=== PATIENT | female | born 1930 | race Caucasian/White ===

== ENCOUNTER 2018-10-09 15:49 | Observation (INO) ==
[2018-10-09] MEDS ORDERED: Acetaminophen 325 MG TABLET PO PRN (17:07)
[2018-10-09] MEDS ORDERED: Mag Hydrox/Al Hydrox/Simeth 30 ML UDC PO PRN (17:09)
[2018-10-09] MEDS ORDERED: Ondansetron ODT 4 MG TAB.RAPDIS SL PRN (17:11)
[2018-10-09] MEDS: traMADol 50 MG TABLET PO PRN (18:43)
[2018-10-09] MEDS: Albuterol 2.5 MG/3 ML NEBULIZER IH SCH (20:32)
[2018-10-09] MEDS: Ipratropium Neb 0.5 MG NEBULIZER IH SCH (20:37)
[2018-10-10] MEDS: Ipratropium Neb 0.5 MG NEBULIZER IH SCH (05:32)
[2018-10-10 05:52] LABS: Basophils % 0.3 %; Eosinophils # 0.2 K/mcL (0.0-0.6); Hematocrit 33.5 % (35.3-44.9); Hemoglobin 10.5 g/dL (11.5-15.4); Immature Granulocytes % 0.3 % (0-4); Lymphocytes # 1.3 K/mcL (0.6-4.6); Lymphocytes % 22.6 %; Mean Corpuscular HGB Conc 31.3 g/dL (31.6-35.5); Mean Corpuscular Hemoglobin 30.1 pg (28.0-33.3); Mean Platelet Volume 10.7 fL (9.4-12.4); Monocytes # 0.6 K/mcL (0.0-1.3); Monocytes % 10.3 %; Neutrophils # 3.8 K/mcL (1.6-8.9); Platelet Count 128 K/mcL (140-400); Red Blood Count 3.49 M/mcL (3.82-4.97); Red Cell Distribution Width 13.6 % (11.5-14.5); Segmented Neutrophils % 63.5 %; White Blood Count 5.9 K/mcL (4.3-11.1)
[2018-10-10 06:08] LABS: BUN/Creatinine Ratio 38 (6-26); Blood Urea Nitrogen 36 mg/dL (8-23); Calcium 9.1 mg/dL (8.6-10.3); Carbon Dioxide 31 mEq/L (23-29); Chloride 102 mEq/L (98-107); Glucose 110 mg/dL (70-105); Magnesium 2.2 mg/dL (1.6-2.6); Osmolality,Calculated 291 (280-300); Potassium 4.6 mEq/L (3.5-5.1); Sodium 136 mEq/L (136-145); eGFR For African Americans > 60 (> 60); eGFR For Non-African Americans 56 (> 60)
[2018-10-10 06:20] LABS: Thyroid Stimulating Hormone 0.638 mcIU/mL (0.340-5.600)
[2018-10-10 07:45] VITALS: BP 132/79
--- NOTE | 2018-10-10 08:29 | Internal Med History&Physical ---
Date of Encounter: 10/10/18 Time of Encounter: 08:29 Assessment and Plan (1) Fracture of humerus Current visit: No Status: Acute This will need to be treated supportively with pain medication, immobilization. This makes the patient unable to care for herself and will require 24-hour care. Qualifiers: Encounter type: subsequent encounter Humerus Location: surgical neck Fracture type: closed Fracture morphology: unspecified fracture morphology Fracture alignment: nondisplaced Laterality: right Fracture healing: with routine healing Qualified Code(s): S42.214D - Unspecified nondisplaced fracture of surgical neck of right humerus, subsequent encounter for fracture with routine healing (2) Asthma Current visit: No Status: Acute Apparently stable. Will use supportive care and nebulized treatments, follow hypoxia. Qualifiers: Asthma severity: moderate Asthma persistence: unspecified Asthma complication type: with acute exacerbation Qualified Code(s): J45.901 - Unspecified asthma with (acute) exacerbation (3) HTN (hypertension) Current visit: No Status: Acute Controlled thus far on current regimen. Qualifiers: Hypertension type: essential hypertension Qualified Code(s): I10 - Essential (primary) hypertension Internal Medicine - H&P: HPI Admitted From: Home Plans for Post Hospital Care: Transfer Group Home Facility History of present illness: Ms. Schultz is a 88 year old female who was in her usual state of health until approximately 3 days ago when she tripped and fell in her kitchen. She states that she had no loss of consciousness, dizziness, head injury, predisposition to falling. She said he states that she simply tripped and hit the stove. She was seen in the emergency room and then was told that she needed to follow-up with orthopedist. Apparently, she was seen in [place] by Dr. montalvo who felt that she could not undergo surgery because of her advanced age. He told her to keep her shoulder still until it healed. She has pain that is 7 out of 10 with movement. As long as she does not move, she has no pain. She denies breathing or other problems. Yesterday, she was seen by and sports medicine who felt that she was unstable at home, family could not care for her, and that she would require placement in the ECF. He had asked us to admit her to the hospital for evaluation of same. She had fallen before once or twice and simply landed on the carpet with no known injury. She is unstable because of arthritis in her ankles and general debility. Past medical history is significant for hypertension, rheumatoid arthritis especially involving hands and feet, and asthma. She treats the arthritis with topical cream, only, because the "pills are not going to help." She is a nonsmoker and nondrinker. She lives alone and is . She wears full dentures. She has a history of pneumonia and respiratory failure but apparently, not recently. There is a question of a lung mass on her diagnosis list but review of chest x-rays and CT scans failed to reveal this. She had "eye surgery" but is not sure as to what kind. She denies cataracts or glaucoma. Past Med Surg Social Fam HX - Past Medical History Medical history: arthritis, asthma, hypertension, RA Psychiatric history: no psych history - Past Surgical History Surgical History: cholecystectomy, orthopedic, other Additional surgical history: eye surgery, BILAT SHOULDER SURG, RT KNEE SURG - Social History Smoking Status: Never smoker Smokeless Tobacco Status: No Alcohol use: none Drug use: none Internal Medicine - H&P: Meds Amitriptyline [Elavil] 25 mg PO HS 12/17/14 [History] Lisinopril [Zestril] 20 mg PO DAILY 12/17/14 [History] Montelukast [Singulair] 10 mg PO DAILY 12/17/14 [History] Ipratropium Neb [Atrovent Neb] 0.5 mg IH QID 04/26/17 [History] Meloxicam 15 mg PO DAILY PRN 02/18/18 [History] Arformoterol Tartrate [Brovana] 15 mcg IH BID 10/07/18 [History] Pramipexole [Mirapex] 0.5 mg PO BID 10/07/18 [History] Tramadol HCl [Ultram] 50 mg PO BID PRN 5 Days #10 tab 10/07/18 [Rx] Vit C/E/Zn/Coppr/Lutein/Zeaxan [Preservision Areds 2 Softgel] 1 tab PO BID 10/07/18 [History] Allergy/AdvReac Type Severity Reaction Status Date / Time No Known Allergies Allergy Verified 02/18/18 20:20 All Systems PM: Patient has no complaint of chest discomfort, dyspnea, orthopnea, breathing problems, palpitations, nausea or vomiting, constipation or diarrhea, other changes in bowel habits, heartburn, difficulty with urination, kidney problems or kidney stones, fevers chills or sweats, rash or itching, seizures, headache or lightheadedness, heat or cold intolerance, blood problems or anemia, or other new complaints, except as mentioned above. Review of systems is otherwise negative. - Constitutional Vitals: Temp Pulse Resp BP Pulse Ox 97.9 F 68 16 132/79 98 10/10/18 07:44 10/10/18 07:44 10/10/18 07:44 10/10/18 07:44 10/10/18 07:44 Exam: Examination: (Except as mentioned above): General: In no apparent distress, alert and oriented 3. She is on oxygen by nasal cannula. Head: Atraumatic and normocephalic. Eyes: Extraocular muscles are intact, pupils equal round and reactive to light and accommodation. Sclerae anicteric. Ears: External ears are normal to inspection and hearing is grossly normal. Nose: Patent without lesion noted. Mouth: No intraoral lesions seen. Edentulous with full dentures in place. Neck: Supple with trachea midline. There is no thyromegaly or adenopathy and carotids are 2+ without bruit heard. Respiratory: No use of accessory muscles. Lungs are clear throughout, with the exception of rare sibilant rhonchi, right upper lung field. Normal airflow. Cardiovascular: Regular rate and rhythm without murmur appreciated. Abdomen: Bowel sounds are normal. No hepatosplenomegaly masses or tenderness. Obese and therefore difficult to palpate deeply. Extremities: No cyanosis clubbing or edema. She is in a sling and swath at the right. She has good movement of her fingers and circulation seems normal with normal capillary refill. There is no cord or calf tenderness. She has deformit y of fingers and hands with ulnar deviation as well as some change in feet consistent with her history of rheumatoid arthritis. Neurological: A and O 3. Cranial nerves II through XII are intact. No focal deficits and no abnormal movements or postures. Skin: Warm and non-diaphoretic with no lesions noted. Breasts, pelvic and rectal: Not examined. Internal Med - H&P Results - Labs CBC & Chem 7: 10/10/18 05:25 10/10/18 05:25 Labs: Short CBC 10/10/18 Range/Units 05:25 WBC 5.9 (4.3-11.1) K/mcL Hgb 10.5 L (11.5-15.4) g/dL Hct 33.5 L (35.3-44.9) % Plt Count 128 L (140-400) K/mcL Neutrophils # 3.8 (1.6-8.9) K/mcL BMP 10/10/18 05:25 Sodium 136 Potassium 4.6 Chloride 102 Carbon Dioxide 31 H BUN 36 H Creatinine 0.94 Glucose 110 H Calcium 9.1
[2018-10-10] MEDS ORDERED: Multivit/Ca/Min/Fe/FA 1 TAB TABLET PO SCH (09:00)
[2018-10-10] MEDS ORDERED: Lisinopril 20 MG TABLET PO SCH (09:00)
[2018-10-10] MEDS: traMADol 50 MG TABLET PO PRN (09:24)
[2018-10-10] MEDS: Albuterol 2.5 MG/3 ML NEBULIZER IH SCH (10:30)
[2018-10-10] MEDS: Ipratropium/Albuterol Neb 3 ML IH SCH ×2 (11:36→17:20)
--- NOTE | 2018-10-10 14:32 | Discharge Summary ---
Date of Encounter: 10/10/18 Time of Encounter: 14:30 - Discharge Diagnosis (1) Fracture of humerus Priority: Secondary Status: Acute Qualifiers: Encounter type: subsequent encounter Humerus Location: surgical neck Fracture type: closed Fracture morphology: unspecified fracture morphology Fracture alignment: nondisplaced Laterality: right Fracture healing: with routine healing Qualified Code(s): S42.214D - Unspecified nondisplaced fr acture of surgical neck of right humerus, subsequent encounter for fracture with routine healing (2) Asthma Priority: Secondary Status: Acute Qualifiers: Asthma severity: moderate Asthma persistence: unspecified Asthma complication type: with acute exacerbation Qualified Code(s): J45.901 - Unspecified asthma with (acute) exacerbation (3) HTN (hypertension) Priority: Secondary Status: Acute Qualifiers: Hypertension type: essential hypertension Qualified Code(s): I10 - Essential (primary) hypertension (4) Multiple falls Priority: Primary Status: Acute Hospital course: Ms. Schultz is a 88 year old female who fell last year and broke her ribs. She also has tripped and fallen on carpet at home. 3 days ago, she fell and broke her right proximal humerus. She was seen at the emergency room and sent home but could not function at home, according to family. She was seen in consultation by Dr. Walt Jacinto, sports medicine, who feels that she is unsafe to be at home. He asked that we admit her and evaluate. She is stable medically but unsteady because of her rheumatoid arthritis, chronic deformities, and inability to use her right upper extremity because of fractured humerus. For this reason, she was evaluated for ECF placement and this is planned. Please see my H&P this date. - Time Spent with Patient Total time spent providing and/or coordinating discharge services: - Discharge Medications Prescriptions: No Action Ipratropium Neb [Atrovent Neb] 0.5 mg IH QID Montelukast [Singulair] 10 mg PO DAILY Amitriptyline [Elavil] 25 mg PO HS Lisinopril [Zestril] 20 mg PO DAILY Meloxicam 15 mg PO DAILY PRN PRN Reason: Pain Pramipexole [Mirapex] 0.5 mg PO BID Vit C/E/Zn/Coppr/Lutein/Zeaxan [Preservision Areds 2 Softgel] 1 tab PO BID Arformoterol Tartrate [Brovana] 15 mcg IH BID Tramadol HCl [Ultram] 50 mg PO BID PRN 5 Days #10 tab PRN Reason: Severe Pain Home Medications: Amitriptyline [Elavil] 25 mg PO HS 12/17/14 [History] Lisinopril [Zestril] 20 mg PO DAILY 12/17/14 [History] Montelukast [Singulair] 10 mg PO DAILY 12/17/14 [History] Ipratropium Neb [Atrovent Neb] 0.5 mg IH QID 04/26/17 [History] Meloxicam 15 mg PO DAILY PRN 02/18/18 [History] Arformoterol Tartrate [Brovana] 15 mcg IH BID 10/07/18 [History] Pramipexole [Mirapex] 0.5 mg PO BID 10/07/18 [History] Tramadol HCl [Ultram] 50 mg PO BID PRN 5 Days #10 tab 10/07/18 [Rx] Vit C/E/Zn/Coppr/Lutein/Zeaxan [Preservision Areds 2 Softgel] 1 tab PO BID 10/07/18 [History] Allergies/Adverse Reactions: Allergy/AdvReac Type Severity Reaction Status Date / Time No Known Allergies Allergy Verified 02/18/18 20:20 Date of admission: 10/09/18 16:24 Primary care physician: PCP NONE Consults: 10/09/18 17:15 Consult to Occupational Therapy [CONS] Routine Comment: Evaluate, develop and implement POC Reason for Consult: eval and treat Does patient have active BEDREST order?: No Is patient medically & hemodynamically stable?: Yes Patient assessed for mobility or mobilized this visit?: Yes Consult to Physical Therapy [CONS] Routine Comment: Evaluate, develop and implement POC Reason for Consult: eval and treat Does patient have active BEDREST order?: No Is patient medically & hemodynamically stable?: Yes Patient assessed for mobility or mobilized this visit?: Yes Consult to [employer] [CONS] Routine Reason for SW Consult: Please evaluate for home situation and discharge planning Discharging clinician: Ronak Finney Anticipated date of discharge: 10/10/18 - Constitutional Vitals: Temp Pulse Resp BP Pulse Ox 97.9 F 68 18 132/79 96 10/10/18 07:44 10/10/18 07:44 10/10/18 12:39 10/10/18 07:44 10/10/18 12:39 Exam: Please see my H&P this date. - Patient Status Disposition: Transfer SNF Condition: Fair Overall status at discharge: patient is progressing back to baseline - Discharge Instructions Follow Up With: Walt Jacinto MD [Partnered Physician] - (follow up in 1 week) Ronak Finney MD [Non-Partnered Physician] -
--- NOTE | 2018-10-10 14:37 | Physician Discharge Referral ---
ExtendedCare Referral Info Provider in Charge after Transfer: Other ([facility] physician) Institutional Level of Care: Skilled - Diagnosis (1) Fracture of humerus Priority: Primary Status: Acute (2) Asthma Priority: Secondary Status: Acute (3) HTN (hypertension) Priority: Secondary Status: Acute (4) Multiple falls Priority: Secondary Status: Acute Prognosis: Fair Aware of Diagnosis: Patient, Family Aware of Prognosis: Patient, Family - Transfer Medications Home Medications: Amitriptyline [Elavil] 25 mg PO HS 12/17/14 [History] Lisinopril [Zestril] 20 mg PO DAILY 12/17/14 [History] Montelukast [Singulair] 10 mg PO DAILY 12/17/14 [History] Ipratropium Neb [Atrovent Neb] 0.5 mg IH QID 04/26/17 [History] Meloxicam 15 mg PO DAILY PRN 02/18/18 [History] Arformoterol Tartrate [Brovana] 15 mcg IH BID 10/07/18 [History] Pramipexole [Mirapex] 0.5 mg PO BID 10/07/18 [History] Tramadol HCl [Ultram] 50 mg PO BID PRN 5 Days #10 tab 10/07/18 [Rx] Vit C/E/Zn/Coppr/Lutein/Zeaxan [Preservision Areds 2 Softgel] 1 tab PO BID 10/07/18 [History] Allergies/Adverse Reactions: Allergy/AdvReac Type Severity Reaction Status Date / Time No Known Allergies Allergy Verified 02/18/18 20:20 - Respiratory Orders Oxygen / L per min Smoking Cessation: Smoking cessation has been advised. For more information, call the [place] Tobacco Quit Line at 3-221-ESCD-NOW. - Advance Directives Code Status: Full Code - History and Physical History/Physical reviewed & approved w/add comments: Completed today. - Mobility Orders Ambulate - Rehabiliation Orders Rehab Potential: Fair Rehab Orders: Evaluation for Physical Therapy, Evaluation for Occupational Therapy Other: Needs to avoid use of right upper extremity and to be in a sling at all times. - Treatments Skin tear care topically daily PRN per policy, May check for fecal impaction rectally daily PRN - Diet Orders Regular CERTIFICATION: I certify that the transfer of the above named patient to an Extended Care Facility is necessary for the continuing treatment of the diagnosis listed. The above information is true and accurate reflection of patient's current condition. Confidential - Redisclosure prohibited without a patient's written consent.
== END 2018-10-10 19:50 ==
LOC: INPGRE

== ENCOUNTER 2019-03-24 09:41 | Observation (INO) ==
[2019-03-24] MEDS ORDERED: Albuterol Neb 7.5 MG, Sodium Chloride for inhalation 12 ML IH ONE (09:45)
[2019-03-24] MEDS ORDERED: Ipratropium Neb 0.5 MG NEBULIZER ONE (09:46)
[2019-03-24] MEDS ORDERED: Albuterol 2.5 MG/3 ML NEBULIZER ONE (09:46)
[2019-03-24] MEDS ORDERED: Ipratropium Neb 0.5 MG NEBULIZER IH ONE ×2 (09:46→13:20)
[2019-03-24] MEDS ORDERED: Furosemide 40 MG/4 ML VIAL IVP ONE ×2 (10:12→13:20)
[2019-03-24 10:17] LABS: Basophils % 0.3 %; Eosinophils # 0.1 K/mcL (0.0-0.6); Hematocrit 38.4 % (35.3-44.9); Hemoglobin 12.7 g/dL (11.5-15.4); Immature Granulocytes % 0.2 % (0-4); Lymphocytes # 1.2 K/mcL (0.6-4.6); Lymphocytes % 18.5 %; Mean Corpuscular HGB Conc 33.1 g/dL (31.6-35.5); Mean Corpuscular Volume 93.7 fL (83.0-100.0); Mean Platelet Volume 10.6 fL (9.4-12.4); Monocytes # 0.6 K/mcL (0.0-1.3); Monocytes % 9.2 %; Neutrophils # 4.5 K/mcL (1.6-8.9); Platelet Count 152 K/mcL (140-400); Red Cell Distribution Width 13.4 % (11.5-14.5); Segmented Neutrophils % 69.8 %; White Blood Count 6.4 K/mcL (4.3-11.1)
[2019-03-24 10:32] LABS: BUN/Creatinine Ratio 22 (6-26); Blood Urea Nitrogen 14 mg/dL (8-23); Calcium 9.5 mg/dL (8.6-10.3); Carbon Dioxide 30 mEq/L (23-29); Chloride 100 mEq/L (98-107); Glucose 110 mg/dL (70-105); Osmolality,Calculated 289 (280-300); Potassium 3.7 mEq/L (3.5-5.1); Sodium 139 mEq/L (136-145); eGFR For African Americans > 60 (> 60); eGFR For Non-African Americans > 60 (> 60)
[2019-03-24] MEDS ORDERED: cefTRIAXone 1,000 MG in 0.9 % Sodium Chloride Mini Bag 100 ML IVPB ONE (10:58)
[2019-03-24] MEDS ORDERED: Azithromycin 500 MG in 0.9 % Sodium Chloride 250 ML IVPB ONE (10:59)
[2019-03-24] MEDS ORDERED: Ipratropium/Albuterol Neb 3 ML IH SCH ×2 (13:00)
[2019-03-24] MEDS ORDERED: 0.9 % Sodium Chloride 1,000 ML IVC SCH (13:20)
[2019-03-24] MEDS ORDERED: Ondansetron ODT 4 MG TAB.RAPDIS SL PRN ×2 (13:20→18:58)
[2019-03-24] MEDS ORDERED: Naloxone 0.4 MG/ML INJ IVP PRN (13:20)
[2019-03-24] MEDS ORDERED: Albuterol 2.5 MG/3 ML NEBULIZER IH ONE (13:20)
[2019-03-24] MEDS: Ipratropium/Albuterol Neb 3 ML IH SCH ×2 (15:26→20:46)
[2019-03-24] MEDS ORDERED: Mag Hydrox/Al Hydrox/Simeth 30 ML UDC PO PRN (18:57)
[2019-03-24] MEDS ORDERED: Melatonin 3 MG TABLET PO PRN (18:58)
[2019-03-24] MEDS ORDERED: DICLOFENAC SODIUM 4 GM TP PRN (19:01)
[2019-03-24] MEDS: Acetaminophen 325 MG TABLET PO PRN (20:46)
[2019-03-24] MEDS: Budesonide/Formoterol 80/4.5 1 PUFF INH IH SCH (20:50)
[2019-03-25] MEDS: Ipratropium/Albuterol Neb 3 ML IH SCH ×4 (01:09→11:20)
[2019-03-25] MEDS: Acetaminophen 325 MG TABLET PO PRN (04:23)
[2019-03-25] MEDS ORDERED: *HR* Enoxaparin 40 MG/0.4 ML SYRINGE SQ SCH (06:00)
[2019-03-25] MEDS ORDERED: Albuterol Neb 7.5 MG, Sodium Chloride for inhalation 12 ML IH ONE (06:47)
[2019-03-25] MEDS: Budesonide/Formoterol 80/4.5 1 PUFF INH IH SCH (07:05)
[2019-03-25] MEDS ORDERED: Racepinephrine Neb 0.5 ML VIAL IH ONE ×2 (08:25→08:29)
[2019-03-25] MEDS ORDERED: methylPREDNISolone 125 MG/2 ML VIAL IVP ONE (08:43)
[2019-03-25] MEDS ORDERED: cefTRIAXone 1,000 MG in Water for inj. (sterile) 10 ML IVP SCH (09:00)
[2019-03-25] MEDS ORDERED: Multivit/Ca/Min/Fe/FA 1 TAB TABLET PO SCH (09:00)
[2019-03-25] MEDS ORDERED: Lisinopril 20 MG TABLET PO SCH (09:00)
[2019-03-25] MEDS ORDERED: Furosemide 40 MG/4 ML VIAL IVP SCH (09:00)
[2019-03-25 09:21] LABS: Basophils % 0.2 %; Eosinophils % 0.2 %; Hematocrit 37.9 % (35.3-44.9); Hemoglobin 12.3 g/dL (11.5-15.4); Immature Granulocytes % 0.5 % (0-4); Mean Corpuscular HGB Conc 32.5 g/dL (31.6-35.5); Mean Corpuscular Hemoglobin 30.8 pg (28.0-33.3); Mean Corpuscular Volume 94.8 fL (83.0-100.0); Mean Platelet Volume 11.2 fL (9.4-12.4); Monocytes # 0.5 K/mcL (0.0-1.3); Monocytes % 8.2 %; Platelet Count 113 K/mcL (140-400); Red Cell Distribution Width 13.6 % (11.5-14.5); Segmented Neutrophils % 75.9 %; White Blood Count 6.6 K/mcL (4.3-11.1)
[2019-03-25 09:25] LABS: BUN/Creatinine Ratio 29 (6-26); Blood Urea Nitrogen 19 mg/dL (8-23); Calcium 9.1 mg/dL (8.6-10.3); Carbon Dioxide 26 mEq/L (23-29); Chloride 101 mEq/L (98-107); Glucose 132 mg/dL (70-105); Osmolality,Calculated 288 (280-300); Potassium 3.8 mEq/L (3.5-5.1); Sodium 137 mEq/L (136-145); eGFR For African Americans > 60 (> 60); eGFR For Non-African Americans > 60 (> 60)
[2019-03-25] MEDS ORDERED: methylPREDNISolone 125 MG/2 ML VIAL IVP SCH (12:00)
[2019-03-25 16:16] VITALS: BP 179/95
== END 2019-03-25 13:23 | disposition short-term general hospital (02) ==
LOC: EMEROOGRE 09:41 → INPGRE 09:41